=== PATIENT | male | born 1950 | race Two or more races ===

== ENCOUNTER → 2017-07-31 | Outpatient (CLI) | payer BC ==
--- NOTE | 2017-08-02 09:54 | SLEEP ---
DATE OF STUDY: 08/01/2017 ATTENDING PHYSICIAN: Dr. Osman Keene. REFERRING PHYSICIAN: Dr. Georges. The patient is a 67-year-old who weighs 155 pounds with a BMI of 23.6. The patient's Jefferson score was 12. Home sleep study was performed by [facility]. Total recording time was 267 minutes. During the night study, the patient had no central apneas. There were 3 obstructive and 5 mixed apneas. There were 2 hypopneas. The patient's apnea-hypopnea index was 2 per hour, supine index 4.9 per hour. Review of nocturnal oximetry study revealed no clinically significant desaturations. The patient's average oxygen saturation was 95%. Mean heart rate of 61 beats per minute. IMPRESSION: 1. No clinically significant sleep disordered breathing. The patient's apnea-hypopnea index was only 2 per hour. 2. No clinically significant nocturnal hypoxia. RECOMMENDATIONS: 1. The patient did not meet the split night criteria for CPAP initiation. 2. The patient has mild to moderate subjective hypersomnia. If clinical suspicion for other disorders such as narcolepsy or idiopathic hypersomnia is high, then consider multiple sleep latency test. 3. Avoid central nervous system depressants. 4. Caution regarding driving until the patient's hypersomnia is resolved with the above recommendations. BOBBY PIPER MD DR: NITZA/ed JOB#: [id number] / [id number] LAKHWINDER Naik MD MTDD
== END | disposition home or self-care (01) ==
LOC: RT 14:26
PROVIDERS: ATTEND Internal Medicine Pulmonary Disease
DX: G47.33 Obstructive sleep apnea (adult) (pediatric) (principal); R06.83 Snoring
CPT/HCPCS: G0399

== ENCOUNTER → 2019-06-24 | Outpatient (CLI) | payer BC ==
--- NOTE | 2019-06-25 09:19 | RAD ---
MR#: [id number] Date of Study: 06/24/2019 Ordering Physician: SHERRI BOWLING, Referring Physician: SHERRI BOWLING, Tech: Bk Coles, CHRIS, RDMS, RVT, RDCS, RTR APPROVED REPORT Patient Location: OUT-PATIENT Indications Rest Pain:Bilaterally VELOCITY AND DOPPLER WAVEFORM ANALYSIS RIGHT cm/secWaveformSeverity LEFT cm/secWaveform Severity dCFA 111.0TriphasicdCFA 124.0Triphasic Prof Fem Art. 51.0TriphasicProf Fem Art. 58.0Triphasic Fem Art Prox. 100.0BiphasicFem Art Prox. 94.0Triphasic Fem Art Mid. 104.0BiphasicFem Art Mid. 96.0Triphasic Fem Art Dist. 82.0BiphasicFem Art Dist. 64.0Triphasic Pop Art(Fossa) 86.0BiphasicPop Art(AK) 59.0Triphasic MEDIA INTERN Prox. 66.0BiphasicPTA Prox. 55.0Biphasic MEDIA INTERN Dist. 75.0BiphasicPTA Dist. 73.0Biphasic Per Art Mid. 60.0BiphasicPer Art Mid. 68.0Biphasic CHAU Prox. 50.0BiphasicATA Prox. 65.0Biphasic DPA 47BiphasicDPA 51Biphasic Findings No significant lower extremity arterial disease noted. Three vessel run-off below the knee. Critical Notification Critical Value: No <Conclusion> No significant LE arterial disease. Signed by : Sherri Bowling, Electronically Approved : 06/25/2019 09:18:53
--- NOTE | 2019-06-25 09:24 | RAD ---
MR#: [id number] Date of Study: 06/24/2019 Ordering Physician: SHERRI BOWLING, Referring Physician: SHERRI BOWLING, Tech: Bk Coles MBA, RDMS, RVT, RDCS, RTR APPROVED REPORT Patient Location: OUT-PATIENT Laterality:Bilateral Indications Bruit Doppler Spectral Velocity Analysis Right Left pCCA 76/13 cm/spCCA 114/21 cm/s mCCA 79/19 cm/smCCA 91/19 cm/s dCCA 76/17 cm/sdCCA 97/20 cm/s Bulb 71/15 cm/sBulb 56/16 cm/s ECA 89/ cm/sECA 90/ cm/s pICA 72/20 cm/spICA 69/20 cm/s Maureen 79/27 cm/smICA 63/18 cm/s dICA 85/27 cm/sdICA 51/18 cm/s Vert. 45/ cm/sVert. 54/ cm/s Subcl. 96/ cm/sSubcl. 19/ cm/s ICA/CCA 1.08ICA/CCA 0.61 Findings Grayscale images of the bilateral common carotid, internal and external carotid vessels reveals mild diffuse plaque with mild diffuse intimal hyperplasia. Spectral waveforms and color Doppler and velocities are within normal limits in the bilateral interna l, external and vertebral arteries. No significant stenosis is identified based on velocity criteria. Critical Notification Critical Value: No <Conclusion> No significant carotid occlusive disease bilaterally. Signed by : Sherri Bowling, Electronically Approved : 06/25/2019 09:24:29
== END | disposition home or self-care (01) ==
LOC: US 14:30
PROVIDERS: ATTEND Internal Medicine Cardiovascular Disease
DX: I65.23 Occlusion and stenosis of bilateral carotid arteries (principal); M79.605 Pain in left leg; M79.604 Pain in right leg
CPT/HCPCS: 93880; 93925

== ENCOUNTER → 2020-05-25 | Outpatient (CLI) | payer MEDICARE ==
--- NOTE | 2020-05-25 15:55 | RAD ---
MR#: [id number] Date of Study: 05/25/2020 Ordering Physician: SHERRI BOWLING, Referring Physician: BRITTNEE DIAZ Tech: RISSA Rabago APPROVED REPORT Test Type: Exercise Stress Nurse/Tech: Angella Ace R.N. Test Indications: c/p Cardiac History: See Electronic Medical Record Medications: See Electronic Medical Record Medical History: See Electronic Medical Record Resting ECG: SR Resting Heart Rate: 77 bpm Resting Blood Pressure: 156/76mmHg Pretest Chest Pain: No chest pain Nurse/Tech Notes S1S2, lungs CTA Consent: The procedure was explained to the patient in lay terms. Informed consent was witnessed. Dhiraj eout was entered into [employer]. History and Stress Test performed by LANETTE Wilcox, MADHAVIT (R) (N) Stress Symptoms fatigue POST EXERCISE Reason for Termination: Reached target heart rate Target HR: Yes Max HR: 145 bpm 112% of Maximum Predicted HR: 129 bpm Exercise duration: 3:00 min:sec, 1 Stage Exercise capacity: 4.6METs Max Blood Pressure: 185/92mmHg Blood Pressure response to exercise: Normal blood pressure response during stress. Heart Rate response to exercise: wnl Chest Pain: No. Arrhythmia: No. ST Change: Yes. non diagnostic INTERPRETATION Stress EKG Conclusion: Baseline EKG showed sinus rhythm. Non-diagnostic changes at peak stress. No arrhythmias. Imaging Protocol IMAGE PROTOCOL: Rest Tc-99m/stress Tc-99m 1 day Rest: Stress: Viability: Radiopharm.Tc99m [id number] Sestamibi Dose10.4mCi 33mCi Duration 15min. 10min. Img Date 05/25/2020 05/25/2020 Inj-Img [id number]. 60min. Post-Injection Exercise: 1 MINUTE Rest Admin Site:IV - Right AntecubitalAdministrator:LANETTE Wilcox, ARRT (R)(N) Stress Admin Site: IV - Right AntecubitalAdministrator: RT Alex (R)(N) STRESS DATA End Diast. Vol.55.0mlAv. Heart Rate81.0bpm End Syst. Vol.4.0mlCO Index BSA4.2L/min Myocardial Yltx558.0gEject. Jjvqdfir52.0% Stress Rates Pk. Fill Rate3.34EDV/secLVtime Pk. Fill 111.29msec Pk. Empty Rate4.29ESV/secLVtime Pk. Qafkr474.10msec 1/3 Pk. Fill1.94EDV/sec Stress Scores Regional WT0.00Summed WT0.00 Regional WM0.00Summed WM0.00 LV Perfusion Scintigraphic images did not show any significant fixed or reversible defects. Transient ischemic di latation was calculated at 1.46 but visually this does not seem as significant. Clinical correlation needed. Wall Motion Normal left ventricle systolic function with ejection fraction calculated at 87%. LV Perf. Quant 17 Seg. SSS0.00 17 Seg. SRS0.00 17 Seg. SDS0.00 Stress Defect Extent (% LAD)0.00Rest Defect Extent (% LAD)0.00Rev. Defect Extent (% LAD)0.00 Stress Defect Extent (% LCX) 0.00Rest Defect Extent (% LCX)0.00Rev. Defect Extent (% LCX)0.00 Stress Defect Extent (% RCA)0.00Rest Defect Extent (% RCA)0.00Rev. Defect Extent (% RCA)0.00 Stress Defect Extent (% PHI)0.00Rest Defect Extent (% PHI)0.00Rev. Defect Extent (% PHI)0.00 Conclusion 1. Treadmill exercise cardioisotope stress test did not show any evidence of ischemia or infarct. 2. TID calculated at 1.46 but visually it does not seem as significant. 3. Normal left ventricular systolic function with ejection fraction calculated at 87%. 4. Patient had poor activity tolerance. Consider cardiac catheterization if clinical suspicion high. Signed by : Lonny Gasca, Electronically Approved : 05/25/2020 15:54:59
== END | disposition home or self-care (01) ==
LOC: NM 09:34
PROVIDERS: ATTEND Internal Medicine Cardiovascular Disease
DX: R07.9 Chest pain, unspecified (principal)
CPT/HCPCS: 78452; 93017; A9500